=== PATIENT | female | born 1955 | race Caucasian/White ===

== ENCOUNTER 2016-11-17 23:33 | Inpatient (IN) ==
[2016-11-18] MEDS ORDERED: TORADOL IM ONE (01:20)
[2016-11-18] MEDS ORDERED: HYDROCODONE/APAP 7.5-325/15 ML PO ONE (01:34)
--- NOTE | 2016-11-18 02:17 | PROVIDER DOCUMENTATION ---
This chart was entered by Renuka Murphy Scribe, acting as scribe for Inocente Hargrove MD. HPI-General Adult - General Chief Complaint: General Adult Stated Complaint: POST OP COMPLAINT Time Seen by Provider: 11/18/16 00:35 Source: patient Allergies/Adverse Reactions: Patient Allergies Allergy/AdvReac Type Severity Reaction Status Date / Time erythromycin base Allergy RASH Verified 11/18/16 00:05 [Erythromycin Base] ketorolac tromethamine * Allergy ANAPHYLAXIS Verified 11/18/16 00:05 [From Toradol] morphine Allergy HEADACHE Verified 11/18/16 00:05 Penicillins Allergy VOMITING Verified 11/18/16 00:05 Home Medications: Home Medication List Medication Instructions Recorded Confirmed Last Taken Type Alprazolam [Xanax] 1 mg PEG TID 01/15/14 11/18/16 11/17/16 History Hydrocodone/Acetaminophen [Vicodin 7.5 mg PEG TID 01/15/14 11/18/16 11/17/16 History 5-300 mg Tablet] Gabapentin [Neurontin] 1 - 3 tab PEG Q3H PRN 07/09/16 11/18/16 11/17/16 History Promethazine [Phenergan] 25 mg PEG Q6H PRN PRN 11/18/16 11/18/16 11/17/16 History - History of Present Illness -Gen Adult Nature of Presenting Problems: 61 Y/O F presents to ED with General Adult C/o.Pt states that her feeding tube came out about 1hr FILLING [employer]. Pt states that she had two different cancers of the jaw and had full reconstruction. Pt can talk but is not very clear. Pt came into ED o replace feeding tube. Location of Pain/Injury: reports: abdomen Pain Radiation: reports: no radiation Quality of Pain: reports: none Severity: reports: moderate Onset/Duration: reports: just prior to arrival, 1 hour ago Timing: reports: still present Context/Activities at Onset: reports: none Associated Symptoms: reports: denies symptoms Review of Systems - Adult - REVIEW OF SYSTEMS - ADULT Constitutional: reports: no symptoms reported Eyes: reports: no symptoms reported Ears, Nose, Mouth & Throat: reports: no symptoms reported Cardiovascular: reports: no symptoms reported Respiratory: reports: no symptoms reported Gastrointestinal: reports: other (Feeding tube replacement.) Genitourinary: reports: no symptoms reported Musculoskeletal: reports: no symptoms reported Integumentary: reports: no symptoms reported Neurological: reports: no symptoms reported Psychiatric: reports: no symptoms reported Endocrine: reports: no symptoms reported Hematologic/Lymphatic: reports: no symptoms reported Allergic/Immunologic: reports: no symptoms reported All Other Systems: Reviewed and Negative Past History - Adult - PAST MEDICAL HISTORY-ADULT Review of Records: reports: Old Records Reviewed, Nursing Assessment Review, Medications Reviewed, Social history reviewed & non-contributory. Major Childhood Illnesses: reports: denies history Cardiovascular: reports: HTN Respiratory: reports: COPD Gastrointestinal: reports: denies history Obstetrical/Gynecological: reports: denies history Genitourinary: reports: denies history Musculoskeletal: reports: denies history Neurological: reports: CVA Endocrine/Immune: reports: denies history Other Conditions: reports: denies history - PRIOR SURGERIES/PROCEDURES Surgical/Procedure History: reports: BTL, other (back and cervical ca with removal, bone tumors) - IMMUNIZATION STATUS Childhood Immunizations: See Nurse Assessment Flu Vaccine: See Nurse Assessment - FAMILY HISTORY Family History: reviewed, not pertinent - SOCIAL HISTORY Smoking: quit greater than 1 year Living Situation: family Physical Exam-General - PHYSICAL EXAM-ADULT Initial Vital Signs Reviewed: Yes - CONSTITUTIONAL General Appearance: appears well, alert, no apparent distress - EYES Eyes: PERRL/EOMI, pink conjunctivae, fundi clear, no AV nicking - HEAD, EARS, NOSE, MOUTH & THROAT HENMT: TMs normal, pharynx normal, other (jaw reconstruction) - NECK Neck: non-tender, full range of motion, supple, normal inspection - RESPIRATORY Respiratory: chest non-tender, lungs clear, normal breath sounds - CARDIOVASCULAR Cardiovascular: normal peripheral pulses, regular rate, rhythm - GASTROINTESTINAL (ABDOMEN) Abdominal Exam: soft, other (Peg tube) - LYMPHATIC Lymphatic: no adenopathy - MUSCULOSKELETAL Back Exam: normal inspection, no CVA tenderness, no vertebral tenderness Extremity: normal range of motion, non-tender - SKIN Integumentary: normal color, normal turgor, warm/dry - NEUROLOGIC Neurologic: clinical massage therapist II-XII nml as tested - PSYCHIATRIC Psych/Mental Status: normal mood/affect, normal thought content, normal thought process, oriented x 3 Progress - PLAN OF CARE/RESULTS Progress/Plan/Lab Results: Vital Signs - 8 hr 11/17/16 23:38 Temperature 95 F L Pulse Rate 100 H Respiratory Rate 14 Blood Pressure 114/62 O2 Sat by Pulse Oximetry 100 - REASSESSMENT Reassessment #1 Time Reassessed: 02:13 Status: improving (advised that we will admit her for observation until Dr Drew can assess the peg tube for placement or replacement. will start iv for pain control with dilaudid. She says it feels about like her first tube, but xray is not reassuring) - CONSULTS/PCP/HOSPITALIST Notification #1 *Consult/PCP/Hospitalist*: Dr. Drew Time Discussed: 01:58 Reason/Comments: Plan of care and admittance after Seeing XRAY Consult Disposition: other (Will see in Hospital, told to admit pt) #2 Consult: Time Discussed: 02:12 Reason/Comments: Admittance Consult Disposition: Admit Procedures - ADDITIONAL PROCEDURES Additional Procedure: OTHER (Peg tube replacement, 18 Fresh) Site Prep: Hibiclens Departure - Departure Time of Disposition Decision: 02:15 DIAGNOSIS: PEG tube malfunction Disposition: ADMITTED INPATIENT 09 Certified Medical Emergency: Emergent Condition: Stable Referrals and Follow-Ups: Dustin Whitehead MD [Primary Care Provider] - This chart was documented by the indicated scribe, (Renuka Murphy Scrannie) and accurately reflects the services I performed and decisions made by me, Inocente Hargrove MD, as attested by the provider's signature.
[2016-11-18] MEDS ORDERED: DEMEROL IV ONE ×3 (02:32→13:33)
[2016-11-18] MEDS: NS 1,000 ML IV SCH ×2 (02:45→17:19)
[2016-11-18 02:50] LABS: MANUAL DIFF NEEDED? NO
[2016-11-18 02:52] LABS: BASO% 0.4 % (0.0-0.8); EOS# 0.14 X1000 (0.0-0.7); HEMATOCRIT 37.5 % (37.0-47.0); HEMOGLOBIN 11.6 g/dL (12.0-16.0); MCH 27.2 PG (27-31); MCHC 30.9 g/dL (33-37); MONO# 0.51 X1000 (0.11-0.59); MONO% 7.4 % (1.7-9.3); MPV 11.2 FL (7.4-10.4); NEUT% 77.2 % (42.2-75.2); PLT 335 X1000 (130-400); RBC 4.26 XMIL (4.2-5.4)
--- NOTE | 2016-11-18 03:50 | HISTORY AND PHYSICAL ---
Patient of Dr. Whitehead. REASON FOR ADMISSION: Sharp abdominal pain preceding eventual PEG tube displacement. 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 She has had 42 RTX treatments over the course of the last 1 year and is currently undergoing reconstructive surgery of the soft palate and posterior oropharyngeal area at [facility]. In the interim, she has had a PEG tube placed for nourishment. She has had a past medical history of Crohn's disease and chronic pancreatitis. She reports that sometime this afternoon, she developed sudden epigastric pain near the site of her PEG tube insertion. She said the pain was sharp, intermittent, with no specific aggravating or relieving factors, or radiation. She has a longstanding history of chronic nausea and stated that the nausea got worse simultaneously with the sharp abdominal pain. No vomiting. No diarrhea, hematochezia, or melenic stools. No fever or chills. No cardiorespiratory complaints other than her chronic cough which has not worsened. A few hours later, her PEG tube came out from its stoma. She called her surgeon at [facility] and only got a recording. Then called [facility] ER and could not get any further information and decided to come to our ER to be evaluated. Currently, the patient still has some pain which is only mildly relieved from oral Vicodin. REVIEW OF SYSTEMS: Recently had loose stools which have resolved with Imodium. No genitourinary complaints. Has a lot of oral secretions which required suctioning. Otherwise , 12 system review is negative. Positive findings per HPI other than generalized weakness. ALLERGIES: Erythromycin, Toradol, morphine, and penicillin. HOME MEDICATIONS: She is on gabapentin 100 mg 1-3 tablets q.6 p.r.n., Xanax 1 mg t.i.d., [place] 7.5 mg t.i.d., Phenergan 25 mg q.6 p.r.n. FAMILY HISTORY: Not reviewed. SURGICAL HISTORY: She has had , hysterectomy, foot reconstruction with skin grafts, tracheostomy, PEG tube, tubal ligation, bone tumor resection. SOCIAL HISTORY: Former smoker. . No alcohol or illicit drug use. PAST MEDICAL HISTORY: See above, including peripheral arterial disease. LAB WORK: Pending at this time, as are x-ray reports. PHYSICAL EXAMINATION: VITAL SIGNS: Blood pressure 114/60, heart rate 100, temperature is 95 degrees, respirations 14, 98% on room air. GENERAL: She is a chronically ill, thin, and somewhat mildly anorexic, middle- aged, woman who is alert and oriented to person, place, and time with noticeable dysphonia. HEENT: Head is normocephalic, atraumatic. Eyes: ZOE, EOMI. She is anicteric and not pale. ENT exam: The oropharyngeal exam is somewhat limited. Her right soft the uvula is somewhat partially resected. However, there is no erythema, no exudation, no masses noted. No central cyanosis. NECK: Supple. No JVD noted. She has almost completely closed central stoma where her tracheostomy was removed over a week ago. She has another small linear opening on the right side of her neck where a drainage tube was placed. No surrounding erythema. No purulent discharge. No tenderness. These areas are covered by dry gauze which is clean. CHEST: Clear to auscultation. Good air entry in both lung padilla. CARDIOVASCULAR: First and second heart sounds heard. No gallops, murmurs, or rubs. Rhythm is regular. ABDOMEN: Scaphoid. There is a new PEG tube placed in the epigastrium which was put in by the ER physician, Dr. Hargrove. No surrounding erythema. Some mild tenderness around the site itself. No mass or organomegaly. Bowel sounds are hypoactive. Noticeable bruit in the abdomen heard. RECTAL: Examination deferred at this time. EXTREMITIES: Diminished pulses distally in her lower extremity distally, upper extremity distally, but symmetrical. No edema, no clubbing or peripheral cyanosis. NEUROLOGIC: No focal deficits. SKIN: Intact with decreased turgor. MUSCULOSKELETAL: Examination is grossly normal. ASSESSMENT: 1. Displaced percutaneous endoscopic gastrostomy tube. 2. Crohn's disease. 3. Chronic pancreatitis. 4. 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 5. Peripheral arterial disease. 6. Chronic obstructive pulmonary disease, mild. 7. Reflux disease. PLAN: At this time, Dr. Drew was contacted by Dr. Hargrove regarding the tube placement. Dr. Hargrove had tried to put in a new tube but after injecting Gastrografin, he was not sure if it was in the stomach. Dr. Drew will see the patient in the morning. Probably may need to do an EGD to confirm location and also may require further manipulation of the tube in place now. In the interim, we will continue to treat patient symptomatically for nausea, pain, and hydrate her. Labs were ordered. I just ordered her labs and if there are any abnormalities, we will address this prior to seeing Dr. Drew. cc: Randal Galvan MD [facility]
[2016-11-18] MEDS ORDERED: PHENERGAN IV ONE ×2 (04:26→11:45)
[2016-11-18] MEDS ORDERED: SODIUM CHLORIDE 0.9% INJ ONE ×2 (04:26→11:45)
[2016-11-18 04:50] LABS: AMYLASE 35 U/L (20-200); LIPASE 20 U/L (13-60)
[2016-11-18 04:54] LABS: AGAP 13; ALBUMIN 3.8 g/dL (3.5-5.0); ALKALINE PHOSPHATASE 88 U/L (32-104); BUN 21 mg/dL (8-22); CALCIUM 9.8 mg/dL (8.8-10.2); CHLORIDE 96 mmol/L (98-107); COSMO 279; GOT 19 U/L (10-30); GPT 8 U/L (10-36); MAGNESIUM 2.3 mg/dL (1.5-2.7); POTASSIUM 4.3 mmol/L (3.5-5.1); SODIUM 139 mmol/L (136-145); TCO2 30 mmol/L (25-35); TOTAL BILIRUBIN 0.17 mg/dL (0.20-1.00); TOTAL PROTEIN 7.2 g/dL (6.3-8.3)
--- NOTE | 2016-11-18 07:34 | Diag Imaging Result Document ---
PROCEDURE NAME: FISH ABDOMEN - 11/18/2016 ABDOMEN: COMPARISON: 07/09/2016. FINDINGS: Contrast was infused into the gastrostomy tube. This outlines a normal-appearing stomach and proximal duodenum. IMPRESSION: Good gastrostomy tube placement.
[2016-11-18] MEDS ORDERED: SODIUM CHLORIDE 0.9% INJ PRN (08:23)
[2016-11-18] MEDS ORDERED: DEMEROL IV PRN ×2 (08:23→11:45)
[2016-11-18] MEDS: PHENERGAN IV PRN ×2 (08:52→17:20)
[2016-11-18] MEDS ORDERED: ZOFRAN IV PRN (11:45)
[2016-11-18] MEDS ORDERED: XANAX PEG SCH (11:45)
[2016-11-18] MEDS: ATIVAN IV PRN ×2 (13:44→21:26)
--- NOTE | 2016-11-18 14:35 | Diag Imaging Result Document ---
PROCEDURE NAME: FISH ABDOMEN - 11/18/2016 ABDOMEN AT 1420 HOURS: COMPARISON: 0115 hours. FINDINGS: Apparently, the patient's gastrostomy tube was repositioned. Water-soluble contrast was infused. This does not appear to be within the stomach. This appears to be freely flowing within the peritoneal cavity. IMPRESSION: Malpositioned gastrostomy tube. Findings were called to the patient's unit immediately.
--- NOTE | 2016-11-18 16:40 | PROGRESS NOTE ---
DATE: 11/18/2016 SUBJECTIVE: Ms. José was admitted early this morning. She had sharp abdominal pain preceding PEG tube displacement. Ms. 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 She has had 42 radiation treatments over the course of the last year. Currently undergoing reconstructive surgery of the soft palate and posterior oropharyngeal area at [facility]. In the interim she has had a PEG tube placed for her nourishment. She has a past medical history of Crohn's disease and chronic pancreatitis. She reports that some time this afternoon she developed sudden epigastric pain at the site of her PEG tube insertion. Said the pain was sharp, intermittent with no specific aggravating or relieving factors or radiation. She had longstanding history of chronic nausea and stated that the nausea got worse simultaneously with the sharp abdominal pain. No vomiting. No diarrhea. No hematochezia. No melanotic stools. No fever or chills. No cardiorespiratory complaints other than the chronic cough which is worsened. A few hours later, PEG tube came out just spontaneously. She called surgeon at [facility] and only got a recording. Called [facility] ER and they could not get any further information, and decided to come to the ER here to get evaluated. Apparently NG tube was tried to be replaced, but she continued to have pain. The pain seemed to get worse. Did radiographic studies. Abdominal x-ray showed good gastrostomy tube placement. That was at 1:00 a.m. and follow up at 1:00 p.m., malpositioned gastrostomy tube. So plan is for Dr. Burger to replace the tube. OBJECTIVE: Vital signs: Today and will and while in the emergency room, temperature 98 degrees, pulse 89, respirations 20, blood pressure 107/65. HEENT: Pupils are equal and round. CVP less than 6 cm. Lungs: Clear in all lung padilla. Cardiovascular: Regular rhythm and rate without murmur or S3. She was tender around the replacement tube with a bulb and very anxious. We gave her some Ativan. ASSESSMENT AND PLAN: 1. Pain around her percutaneous endoscopic gastrostomy feeding tube. Plan is for her to undergo esophagogastroduodenoscopy and replacement of the tube. 2. Protein calorie malnutrition. Needs to continue percutaneous endoscopic gastrostomy tube feeding. 3. Crohn's disease. 4. Chronic pancreatitis. 5. Squamous cell oral cancer, status post surgery with 42 radiation treatments and now undergoing reconstructive surgery. 6. Review of her laboratory, hematocrit 37, electrolytes unremarkable. Orders, I do not see any change at this point this. cc: Obi Lewis MD
[2016-11-18] MEDS ORDERED: DIPRIVAN 1% ONE (16:55)
[2016-11-18] MEDS ORDERED: VERSED ONE (16:55)
[2016-11-18] MEDS ORDERED: XYLOCAINE-MPF 2% ONE (17:07)
[2016-11-18] MEDS: NORCO-7.5 PEG SCH ×3 (17:07→21:24)
[2016-11-18] MEDS ORDERED: LEVAQUIN 500 MG/D5W 500 MG/100 ML IVPB IV ONE (18:00)
[2016-11-18] MEDS ORDERED: PROTONIX IV SCH (19:00)
[2016-11-18] MEDS ORDERED: SODIUM CHLORIDE 0.9% INJ SCH (19:00)
--- NOTE | 2016-11-18 20:25 | OPERATIVE NOTE ---
PROCEDURE DATE: 11/18/2016 PROCEDURE: Esophagogastroduodenoscopy and G-tube replacement. PREOPERATIVE DIAGNOSE: G-tube displacement. POSTOPERATIVE DIAGNOSE: G-tube displacement, replaced. DESCRIPTION OF PROCEDURE: After informed consent and adequate intravenous sedation, the scope was introduced to the esophagus, stomach. The G-tube is not in the stomach. The G site was identified. The PEG site was then dilated with the sounds up to 25. A 25-[place] gastrostomy tube replacement was done with internal balloon inflated and the melissa is at 4. Patient tolerated the procedure well without any immediate complications. cc: Gael Burger MD
[2016-11-19] MEDS: NS 1,000 ML IV SCH (02:38)
[2016-11-19] MEDS: ATIVAN IV PRN (02:38)
[2016-11-19 07:48] VITALS: BP 132/68
[2016-11-19] MEDS: NORCO-7.5 PEG SCH (09:55)
[2016-11-19] MEDS ORDERED: LEVAQUIN 500 MG/D5W 500 MG/100 ML IVPB IV ONE (11:00)
--- NOTE | 2016-11-19 12:56 | DISCHARGE SUMMARY ---
ADMISSION DATE: 11/18/2016 DISCHARGE DATE: 11/19/2016 HISTORY AND HOSPITAL COURSE: The patient was admitted on 11/18/2016, yesterday. Had trouble with her PEG tube. The PEG tube was replaced per Dr. Burger. Feels good. Still having loose stools but her states she has had that for a while. No sign of pain. No nausea at the present time. Dr. Burger dilated up to 25, a 25-Polish gastrostomy tube replacement done, balloon inflated. Follow up with her oncologist. Continue here her feeding when she goes home and plan to let her go home. DISCHARGE MEDICATIONS: She is on [place] 7.5 per PEG tube. She has Phenergan that she uses 12.5 mg per PEG tube p.r.n.; she wanted a prescription. I think her other medications at home are Xanax 1 mg PEG tube t.i.d., Neurontin 1-3 tablets per PEG tube q.3 hours p.r.n. She has hydrocodone 7.5 per PEG tube t.i.d. and Phenergan 25 mg per PEG tube q.6 hours p.r.n. cc: Obi Lewis MD
== END 2016-11-19 11:19 | disposition home health service (06) ==
LOC: EDIPHOLD 23:33 → ED 23:33 → OBSVTOIN 11-18 04:50 → SUATTDRO 11-18 04:50 → 3N 11-18 13:23
PROVIDERS: ATTEND Emergency Medicine

== ENCOUNTER 2017-01-20 04:09 | Inpatient (IN) ==
[2017-01-20] MEDS ORDERED: DUONEB (A & A) INH ONE (04:32)
[2017-01-20 04:41] LABS: ALLEN TEST YES; BE 8.1 mmoll (-3.0-3.0); BLOOD TYPE ARTERIAL; DRAW SITE R RADIAL; O2(CT) 11.4 mL/dL (15.0-23.0); SAMPLE BLOOD; SAO2 89.9 % (95.0-100.0); THB 9.3 g/dL (11.5-17.4)
--- NOTE | 2017-01-20 04:42 | PROVIDER DOCUMENTATION ---
HPI-General Adult - General Chief Complaint: Shortness of Breath Stated Complaint: GENERAL Time Seen by Provider: 01/20/17 04:50 Source: patient, family Allergies/Adverse Reactions: Patient Allergies Allergy/AdvReac Type Severity Reaction Status Date / Time Iodinated Contrast Media - Allergy Severe Unknown Verified 01/20/17 07:03 Oral and [IV Dye] erythromycin base Allergy RASH Verified 11/18/16 00:05 [Erythromycin Base] ketorolac tromethamine * Allergy ANAPHYLAXIS Verified 11/18/16 00:05 [From Toradol] morphine Allergy HEADACHE Verified 11/18/16 00:05 Penicillins Allergy VOMITING Verified 11/18/16 00:05 Home Medications: Home Medication List Medication Instructions Recorded Confirmed Last Taken Type Alprazolam [Xanax] 1 mg PEG TID 01/15/14 01/20/17 01/19/17 21:00 History Hydrocodone/Acetaminophen [Vicodin 7.5 mg PEG TID 01/15/14 01/20/17 01/19/17 21: 00 History 5-300 mg Tablet] Gabapentin [Neurontin] 300 mg PEG Q3H 07/09/16 01/20/17 01/19/17 21:00 History Promethazine [Phenergan] 25 mg PEG Q6H PRN PRN #60 tablet 11/19/16 01/20/17 Unknown Rx Omeprazole [Omeprazole] 40 mg PEG DAILY 01/20/17 01/20/17 01/19/17 09:00 History - History of Present Illness -Gen Adult Nature of Presenting Problems: Pt was noted to have the sudden onset of sonorous breathing tonight. She has been treated for a right throat/neck cancer with surgery and radiation and now has a new throat squamous cell cancer that was recently resected in [place]. She has a follow-up appoinment in 1 week there. She reports a history of copd and wonders if she needs home oxygen. She can swallow liquids, but has a peg tube for feeding. She has experienced aspiration pneumonia in the past. Her Dr at the [facility] is Dr Mckinnon, ENT Review of Systems - Adult - REVIEW OF SYSTEMS - ADULT Constitutional: denies: chills, fever Eyes: denies: discharge, blurred vision Ears, Nose, Mouth & Throat: reports: hoarseness, other (she sometimes needs to write because she can't speak clearly and has a peg tube) Past History - Adult - PAST MEDICAL HISTORY-ADULT Review of Records: reports: Old Records Reviewed, Nursing Assessment Review, Medications Reviewed Major Childhood Illnesses: reports: denies history Cardiovascular: reports: HTN Respiratory: reports: COPD Gastrointestinal: reports: denies history Obstetrical/Gynecological: reports: denies history Genitourinary: reports: denies history Musculoskeletal: reports: denies history Neurological: reports: CVA Endocrine/Immune: reports: denies history Other Conditions: reports: denies history - PRIOR SURGERIES/PROCEDURES Surgical/Procedure History: reports: BTL, other (back surgery and 2 different throat and neck surgeries with removal, bone tumors of the lower right leg were also removed) - IMMUNIZATION STATUS Childhood Immunizations: See Nurse Assessment Flu Vaccine: See Nurse Assessment - FAMILY HISTORY Family History: reviewed, not pertinent Physical Exam-General - PHYSICAL EXAM-ADULT Initial Vital Signs Reviewed: Yes - CONSTITUTIONAL General Appearance: appears well, alert, no apparent distress - EYES Eyes: PERRL/EOMI, pink conjunctivae - HEAD, EARS, NOSE, MOUTH & THROAT HENMT: normocephalic/atraumatic, moist mucous membranes, other (difficult to understand her speech, able to swallow liquid, but needs a peg tube) - NECK Neck: non-tender, full range of motion, supple - RESPIRATORY Respiratory: chest non-tender, lungs clear, normal breath sounds, no pleuratic chest pain, no respiratory distress, no accessory muscle use - GASTROINTESTINAL (ABDOMEN) Abdominal Exam: normal bowel sounds, non tender, soft, no organomegaly, no pulsatile mass - LYMPHATIC Lymphatic: no adenopathy - MUSCULOSKELETAL Back Exam: normal inspection, no CVA tenderness, no vertebral tenderness, CVA tenderness Extremity: normal range of motion, non-tender, normal gait, no pedal edema - SKIN Integumentary: normal color, normal turgor, warm/dry - NEUROLOGIC Neurologic: animal surgeon II-XII nml as tested, grossly normal, no motor/sensory deficits Progress - PLAN OF CARE/RESULTS Progress/Plan/Lab Results: Vital Signs - 8 hr 01/20/17 04:10 Temperature 99.9 F H Pulse Rate 111 H Respiratory Rate 17 Blood Pressure 107/79 O2 Sat by Pulse Oximetry 92 L Orders Category Date Time Status cxr [CHEST-2 VIEWS] [RAD] Stat Exams 01/20/17 04:05 Ordered ABG [RESP] Routine Lab 01/20/17 04:22 Ordered CBC WITH ELECTRONIC DIFF [HEME] Stat Lab 01/20/17 04:00 Results CMP [COMPREHENSIVE METABOLIC PANEL] [CHEM] Stat Lab 01/20/17 04:00 Received Ddimer [D-DIMER] [CHEM] Stat Lab 01/20/17 04:00 Received pro-bnp [PRO B-NATRIURETIC PEPTIDE] Stat Lab 01/20/17 04:00 Received Albuterol 2.5MG/Ipratrop 0.5MG [Duoneb (A & A)] Med 01/20/17 04:32 Discontinued 3 ml INH NOW ONE Aerosol Treatments Routine Oth 01/20/17 04:32 Active Aerosol Treatments Stat Oth 01/20/17 04:32 Active EKG [EKG] Stat Ther 01/20/17 03:56 Ordered Result Diagrams: 01/20/17 04:00 01/20/17 04:00 - REASSESSMENT Reassessment #1 Time Reassessed: 06:55 Status: improving (Took over pt's care at 6AM and pt was examined. Pt had radical throat cancer surgery 1-2 months ago at [facility]. Pt cannot talk and her anterior neck is very swelling even though the surgical wound is healing well w/ o signs for infection by inspection. CT neck with contrast ordered. Pt is stable and her SO2=96% on RA.) - XRAY 1 XRAY Study: Chest Impression: Abnormal (Pulmonary edema vs. Pneumonia) - CT/MRI 1 CT Study: Neck, Thorax Impression: Abnormal (Details see Radiology reports) - CONSULTS/PCP/HOSPITALIST Notification #1 *Consult/PCP/Hospitalist*: [facility]/DR. PANIAGUA Consult Disposition: Admit - CHANGE OF SHIFT REPORT (ED Provider) Report Given and Care Transferred to:: Dr Hilliard Time of Transfer: 05:58 Departure - Departure Date of Disposition Decision: 01/20/17 Time of Disposition Decision: 07:50 DIAGNOSIS: Respiratory distress, PNA (pneumonia) Disposition: ADMITTED INPATIENT 09 Certified Medical Emergency: Emergent Condition: Stable - Critical Care Note This patient required my direct & personal management of CC.: No
[2017-01-20 04:43] LABS: PCO2(98.6) 55 mmHg (35-45)
[2017-01-20 04:44] LABS: MODALITY ROOM AIR; PO2(98.6) 49 mmHg (60-100)
[2017-01-20 04:56] LABS: BASO% 0.1 % (0.0-0.8); HEMATOCRIT 32.1 % (37.0-47.0); LYMPH# 0.17 X1000 (1.2-3.4); LYMPH% 1.6 % (20.5-51.1); MANUAL DIFF NEEDED? NO; MCH 26.5 PG (27-31); MCHC 31.2 g/dL (33-37); MCV 85.1 FL (81-99); MONO# 0.55 X1000 (0.11-0.59); MONO% 5.1 % (1.7-9.3); MPV 10.3 FL (7.4-10.4); NEUT% 93.2 % (42.2-75.2); PLT 261 X1000 (130-400); RBC 3.77 XMIL (4.2-5.4)
[2017-01-20 05:02] LABS: AGAP 12; ALBUMIN 3.3 g/dL (3.5-5.0); ALKALINE PHOSPHATASE 91 U/L (32-104); BUN 18 mg/dL (8-22); CALCIUM 8.5 mg/dL (8.8-10.2); CHLORIDE 91 mmol/L (98-107); COSMO 274; GOT 38 U/L (10-30); GPT 17 U/L (10-36); POTASSIUM 4.1 mmol/L (3.5-5.1); SODIUM 134 mmol/L (136-145); TCO2 31 mmol/L (25-35); TOTAL BILIRUBIN 0.15 mg/dL (0.20-1.00); TOTAL PROTEIN 6.8 g/dL (6.3-8.3)
--- NOTE | 2017-01-20 05:17 | EKG Report ---
Test Performed on : 01/20/2017 03:59:14 AM Test Reason : cp Blood Pressure : / mmHG Vent. Rate : 102 BPM Atrial Rate : 102 BPM P-R Int : 140 ms QRS Dur : 084 ms QT Int : 364 ms P-R-T Axes : 061 033 053 degrees QTc Int : 474 ms Sinus tachycardia. Otherwise normal ECG When compared with ECG of 09-JUL-2016 16:36, No significant change was found Unconfirmed Result
[2017-01-20] MEDS ORDERED: BENADRYL IV ONE (05:39)
[2017-01-20] MEDS ORDERED: SOLU-CORTEF IV ONE (05:39)
[2017-01-20] MEDS ORDERED: LEVAQUIN 500 MG/D5W 500 MG/100 ML IVPB IV ONE (06:05)
[2017-01-20] MEDS ORDERED: CLINDAMYCIN 600 MG/NS 600 MG/50 ML IVPB IV ONE (06:05)
--- NOTE | 2017-01-20 07:16 | Diag Imaging Result Doc PS360 ---
EXAM: ANGIOGRAM/PULMONARY ARTERIES HISTORY: hypoxia/ elevated d-dimer TECHNIQUE: CT of the chest with intravenous contrast with dose reduction (clarity.) COMMENT: There are no filling defects in the pulmonary arteries. There is atherosclerotic calcification in the aorta. There is no evidence of aneurysm or dissection. There is alveolar opacity throughout both lungs particularly in the inferior portions of the left lower lobe. There are some emphysematous changes. There is some fibrosis in the apices. Compared to 07/09/2016 the majority of the alveolar opacity was not present previously. There is no evidence of significant adenopathy and no abnormal fluid collections are present. IMPRESSION: Pulmonary edema and/or pneumonia. No evidence of pulmonary emboli. Electronically signed by Magdaleno Mott 01/20/2017 7:13 AM
--- NOTE | 2017-01-20 07:25 | Diag Imaging Result Doc PS360 ---
EXAM: NECK W/CONTRAST HISTORY: Post op/slurry speech/neck swelling/apsiration TECHNIQUE: CT of the neck with intravenous contrast COMMENT: The current study is compared with 03/07/2016. Since the previous study there has apparently been surgery to both sides of the neck with multiple surgical clips. The right submandibular gland is absent or atrophic. The parotid glands are atrophic in appearance. The nasopharynx is unremarkable. There is increased soft tissue density in the right parapharyngeal space which obliterates the fat planes between the carotid and the mandibular ramus. There is also some subcutaneous soft tissue thickening on the left side in the tonsillar pillar. The patient is edentulous with similar periodontal changes in the mandible to the previous study. There may have been a resection of parts of the tongue since the previous study. The epiglottis is similar in appearance to the previous exam. There is generally less fat in the neck on the previous study. No discrete nodes are present. Some apical pleural thickening is noted on the left which was not apparent on the previous study. IMPRESSION: Evidence of previous bilateral neck dissection. By history, the patient has also had radiation to the neck which would explain some of the soft tissue changes. The possibility of residual mucosal neoplastic disease cannot be excluded. Comparison with more recent post operative studies would be helpful in evaluating any interval change. Electronically signed by Magdaleno Mott 01/20/2017 7:22 AM
--- NOTE | 2017-01-20 08:58 | Diag Imaging Result Doc PS360 ---
EXAM: CHEST-2 VIEWS INDICATION: sob/ ? aspiration TECHNIQUE: 2 views COMPARISON: 07/09/2016 FINDINGS: There are infiltrates at both lung bases suggesting pneumonia. At least no large pleural fluid collection is appreciated. There is no evidence of pneumothorax. Cardiac silhouette is unremarkable. IMPRESSION: Bibasilar consolidations as described. Electronically signed by Mirza Alfred 01/20/2017 8:55 AM
--- NOTE | 2017-01-20 09:34 | HISTORY AND PHYSICAL ---
PRIMARY CARE PHYSICIAN: Dr. Dustin Whitehead. EARS, NOSE, THROAT PHYSICIAN: Dr. Wayne Mckinnon at the [facility] at [facility]. CHIEF COMPLAINT: Altered mental status and dyspnea. HISTORY OF PRESENT ILLNESS: Mrs. 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 She is status post 42 radiation treatments and has undergone radical head and neck surgery at [facility] and is under the care of Dr. Wayne Mckinnon. She most recently had reconstructive surgery of her neck in September of this year at which time she had a PEG tube placed for nutrition. Also, she has been fairly dysphasic since that time, having a difficult time communicating verbally. She comes in today for altered mental status. Her fiancee woke up around 2 o' clock, and the patient was erratically breathing and difficult to arouse. At that time, 911 was called, and the patient was noted to be tachycardic in the ambulance as well as hypoxic. When she got to the ER, she was stabilized with oxygen and breathing treatments and a CTA of the chest was done which revealed pulmonary edema and/or pneumonia without evidence of pulmonary emboli. Her laboratory data shows that she is mildly anemic, and ABG reveals hypoxic and hypercarbic respiratory failure. As such, she is going to be admitted for iuedk-ah-evaduwy respiratory failure, acute-on- chronic aspiration, and aspiration pneumonia. PAST MEDICAL HISTORY: 1. Head and neck cancer, please see HPI. 2. Severe calorie protein malnutrition. 3. Chronic aspiration. 4. Chronic respiratory failure. 5. Crohn's disease. 6. Chronic pancreatitis. 7. Chronic pain. 8. Anxiety. PAST SURGICAL HISTORY: section, hysterectomy, foot surgery, trach, PEG , tubal ligation, radical head and neck surgery, bone tumor resection. SOCIAL HISTORY: Patient quit smoking after the diagnosis of head and neck cancer. She does not use alcohol, tobacco, or illicit drugs currently. Phil is at the bedside. REVIEW OF SYSTEMS: Difficult to obtain secondary to dysphagia, but she has had subjective low- grade fevers. No visual disturbances, she has had some neck pain and throat swelling, as well as occasional dysphagia and aspiration with vomiting. She reports worsening cough which is dry in nature. No abdominal pain to speak of. She has loose stools constantly but no overt diarrhea. No chest pain, but she has had some shortness of breath. No lower extremity edema. No orthopnea. Overall, her weight has stayed the same but is quite low. ALLERGIES: IV dye. Oral contrast, erythromycin base. Toradol, morphine and penicillin. HOME MEDICATIONS: 1. Phenergan 25 mg via PEG tube every 6 hours. 2. Omeprazole 40 mg via PEG tube daily. 3. Vicodin 7.5 mg via PEG tube b.i.d. 4. Neurontin 300 mg via PEG tube q. 3 hours. 5. Xanax 1 mg per PEG t.i.d. FAMILY HISTORY: Noncontributory. PHYSICAL EXAMINATION: VITAL SIGNS: Blood pressure is 103/57, heart rate is 101, respiratory rate is 18, O2 saturation 96% on 2 L. GENERAL: This is a frail, bordering on cachectic and disheveled-appearing 61- year-old female, lying in the hospital bed in no acute distress. NEUROLOGIC: The patient follows commands with very garbled speech but she is oriented. HEENT: Head is atraumatic and normocephalic. Her pupils are equal, round, and reactive to light. Oral mucosa is a bit dry. Her trachea is midline. Incisional scars are clean, dry, and intact. There is no JVD or carotid bruits. CHEST: Bibasilar rhonchi and crackles. CV: Regular rate and rhythm. S1-S2 is noted. GASTROINTESTINAL: PEG tube site is clean, dry, and intact. Belly is soft and nondistended. EXTREMITIES: Without edema, clubbing, or cyanosis. Diminished pulses bilaterally. DIAGNOSTIC DATA: WBC 10.71, hemoglobin 10, hematocrit 32.1, platelet count 261. D-dimer 2.33. ABG on room air: pH 7.4, CO2 of 55, O2 of 49, bicarb 31, oxyhemoglobin 86.8. ABG O2 saturation 89.9%. Sodium 134, potassium 4.1, chloride 91, CO2 of 31, anion gap 12. BUN 18 , creatinine 0.6, glucose 164. Calcium 8.5, bilirubin 0.15. AST 38, ALT 17, alkaline phosphatase 91. ProBNP 723. Albumin 3.3. CTA of the chest shows pulmonary edema and/or pneumonia without evidence of PE. Neck CT with contrast shows evidence of previous bilateral neck dissection. By history, the patient has had radiation to the neck which would explain some of the soft tissue changes. The possibility of residual mucosal neoplastic disease cannot be excluded. Comparison with more recent postoperative studies would be helpful in evaluating any interval change. ASSESSMENT AND PLAN: 1. Geiln-me-wudcrhw hypercarbic and hypoxic respiratory failure: Likely secondary to chronic aspiration. We will continue oxygen, antibiotics, breathing treatments, and aggressive pulmonary toilet. We will check a chest x-ray in the morning. 2. Aspiration pneumonia. We will obtain blood cultures and sputum cultures and start appropriate antibiotics ensuring anaerobic coverage. 3. Chronic aspiration: We are going to consult Nutrition and Speech Therapy although the patient is receiving PEG feedings. We will try to get the best recommendations we can for nutrition and oral feedings. 4. Normocytic anemia. We are going to check a full set of iron studies and thyroid function. 5. Severe protein calorie nutrition: We will continue PEG tube feedings and consult nutrition. 6. Chronic pain and anxiety: We will continue her home medications. 7. History of neck cancer: Overall appears to be stable; however, the CT of the neck did show there still might be residual mucosal neoplastic disease. We will defer this to Dr. Mckinnon, her ENT surgeon at [facility]. 8. Deep venous thrombosis and gastrointestinal prophylaxis will be provided with Lovenox and IV Protonix. Further recommendations to follow. Dictated by JERO Bernard for Flaquito Gupta MD cc: JERO Bernard MD Moses Awoniyi, MD Dr. KIRK [facility]
[2017-01-20] MEDS ORDERED: DUONEB (A & A) INH PRN (09:39)
[2017-01-20 10:32] LABS: IRON SATURATION 5 %; TIBC 190 ug/dL; TOTAL IRON 10 ug/dL (49-151); UNBOUND IRON 180 ug/dL (112-346)
[2017-01-20 10:33] LABS: PREALBUMIN 11.2 mg/dL (20-40)
[2017-01-20 10:43] LABS: FREE T4 0.97 ng/dL (0.93-1.70)
[2017-01-20] MEDS: DUONEB (A & A) INH SCH ×3 (11:08→22:59)
[2017-01-20] MEDS: LOVENOX SUBQ SCH (11:14)
[2017-01-20] MEDS: ZYVOX 600 MG/D5W 600 MG/300 ML IVPB IV SCH (11:15)
[2017-01-20] MEDS: NS 1,000 ML IV SCH (11:15)
[2017-01-20] MEDS: HYDROCODONE/APAP 7.5-325/15 ML PEG SCH ×3 (12:05→17:19)
[2017-01-20] MEDS: XANAX PEG SCH ×3 (12:11→17:19)
[2017-01-20] MEDS: NEURONTIN PEG SCH ×4 (12:28→22:06)
[2017-01-20] MEDS: MERREM 1 GM in NS 50 ML IV SCH ×2 (14:01→22:47)
[2017-01-21] MEDS: PHENERGAN PEG PRN ×2 (00:28→06:16)
[2017-01-21] MEDS: NEURONTIN PEG SCH ×7 (01:07→23:16)
[2017-01-21] MEDS: ZYVOX 600 MG/D5W 600 MG/300 ML IVPB IV SCH ×2 (01:07→17:17)
[2017-01-21] MEDS: DUONEB (A & A) INH SCH ×4 (03:02→22:24)
[2017-01-21 05:57] LABS: HEMATOCRIT 27.3 % (37.0-47.0); HEMOGLOBIN 8.5 g/dL (12.0-16.0); MCH 26.7 PG (27-31); MCHC 31.1 g/dL (33-37); MCV 85.8 FL (81-99); MPV 10.3 FL (7.4-10.4); RBC 3.18 XMIL (4.2-5.4)
[2017-01-21] MEDS: NS 1,000 ML IV SCH ×2 (06:03→20:46)
[2017-01-21 06:13] LABS: AGAP 8; BUN 14 mg/dL (8-22); CALCIUM 8.8 mg/dL (8.8-10.2); CHLORIDE 100 mmol/L (98-107); COSMO 280; POTASSIUM 3.5 mmol/L (3.5-5.1); SODIUM 140 mmol/L (136-145); TCO2 32 mmol/L (25-35)
[2017-01-21] MEDS: MERREM 1 GM in NS 50 ML IV SCH ×3 (06:16→20:47)
[2017-01-21] MEDS: PRILOSEC ORAL SUSPENSION MISC SCH (07:01)
[2017-01-21 08:28] LABS: INR 1.06; PROTIME 11.2 Seconds (9.2-11.7)
--- NOTE | 2017-01-21 09:08 | Diag Imaging Result Doc PS360 ---
EXAM: CHEST-2 VIEWS HISTORY: hypoxia TECHNIQUE: COMPARISON: 01/20/2017 FINDINGS: There is persistence of the left lung infiltrates inferiorly. Heart is not enlarged. Mild increased AP diameter to the chest. Trace left pleural fluid. Markings in the lower right lung are less pronounced than on the prior study. The lungs are better aerated on the current exam. IMPRESSION: Mild interval improvement. Electronically signed by eDnver Cannon 01/21/2017 9:06 AM
[2017-01-21] MEDS: NEOSPORIN OINTMENT TUBE TOP SCH ×2 (09:09→20:48)
[2017-01-21] MEDS: XANAX PEG SCH ×4 (09:09→23:16)
[2017-01-21] MEDS: HYDROCODONE/APAP 7.5-325/15 ML PEG SCH ×3 (09:09→20:46)
[2017-01-21] MEDS: LOVENOX SUBQ SCH (09:24)
--- NOTE | 2017-01-21 10:51 | Diag Imaging Result Doc PS360 ---
EXAM: BA SWALLOW W/VIDEO SPEECH THER HISTORY: ASPIRATION PRECAUTIONS TECHNIQUE: Modified barium swallow total dose is 8 mg. Fluoroscopy time is 60 seconds. COMPARISON: None. FINDINGS: Thin and thick barium were swallowed. Patient had difficulty swallowing thick barium. Aspiration occurred with each swallow with thin barium. The patient did not have a strong cough reflex. A surgical clips in the neck. IMPRESSION: Aspiration with only a small cough reflex. Electronically signed by Denver Cannon 01/21/2017 10:49 AM
[2017-01-21] MEDS: IMODIUM PO PRN ×2 (13:11→23:17)
--- NOTE | 2017-01-21 14:50 | PROGRESS NOTE ---
DATE: 01/21/2017 SUBJECTIVE: This patient looks much better today. She is not complaining of shortness of breath. She had a modified barium swallow today that showed aspiration with only a small cough reflex. So I talked to the patient in detail, and I told her that for now she cannot eat or drink anything because there is a high risk of aspiration. She seems to understand this, but I am not quite sure that she is going to follow my recommendations. OBJECTIVE: Vital Signs: Temperature 97.9 degrees, pulse 81, respiratory rate 18, blood pressure 136/54, oxygen saturation 98% on room air. HEENT: Head normocephalic. No trauma. PERRLA. Neck: Trachea is midline. Incisional scars are clean, dry and intact. No JVD or carotid bruits. Chest: Bilateral scattered rhonchi. Cardiovascular: Regular rhythm and rate. No murmurs. Abdomen: Soft, nontender, nondistended. No hepatosplenomegaly. Patient has a PEG tube that is clean, dry and intact. Extremities: No edema. No clubbing. No cyanosis. Neurological: The patient is alert and oriented x3. She follows commands. She has a problem talking because of her history of throat cancer. LABORATORY: WBC 7.9, hemoglobin 8.5, hematocrit 27.3, platelets 231,000. Sodium 140, potassium 3.5, chloride 100, bicarbonate 32, BUN 14, creatinine 0.4, glucose 106, calcium 8.8, phosphorus 2.1, magnesium 2. ASSESSMENT AND PLAN: 1. Acute on chronic hypercapnic and hypoxemic respiratory failure. This is much better. At this moment she is not complaining of any shortness of breath or respiratory distress. We will continue with breathing treatment and aggressive pulmonary toilet, probably this patient can be discharged tomorrow. 2. Aspiration pneumonia. With the modified barium swallow that showed aspiration with minimal cough reflex, I explained that to the patient in detail and I told her that she cannot eat or drink anything because of the high risk off aspiration. 3. Normocytic anemia. Continue with the same management. 4. Severe protein calorie malnutrition. Continue PEG tube feeding. 5. Chronic pain and anxiety. Continue with home medication. 6. History of neck cancer. We will defer this to Dr. Mckinnon, her ENT and surgeon at [facility] and her cancer doctor. 7. Deep vein thrombosis prophylaxis and gastrointestinal prophylaxis provided by Lovenox and Protonix. cc: Flaquito Gupta MD
[2017-01-22] MEDS: NEURONTIN PEG SCH ×5 (02:27→14:00)
[2017-01-22] MEDS: PHENERGAN PEG PRN (02:27)
[2017-01-22] MEDS: ZYVOX 600 MG/D5W 600 MG/300 ML IVPB IV SCH ×2 (02:27→14:03)
[2017-01-22] MEDS: DUONEB (A & A) INH SCH ×2 (03:40→10:25)
[2017-01-22] MEDS: NS 1,000 ML IV SCH (04:24)
[2017-01-22 06:17] LABS: HEMATOCRIT 27.5 % (37.0-47.0); HEMOGLOBIN 8.4 g/dL (12.0-16.0); MCH 26.6 PG (27-31); MCHC 30.5 g/dL (33-37); RBC 3.16 XMIL (4.2-5.4)
[2017-01-22 06:34] LABS: AGAP 11; BUN 10 mg/dL (8-22); CALCIUM 8.4 mg/dL (8.8-10.2); CHLORIDE 104 mmol/L (98-107); COSMO 289; POTASSIUM 3.7 mmol/L (3.5-5.1); SODIUM 145 mmol/L (136-145); TCO2 30 mmol/L (25-35)
[2017-01-22] MEDS: IMODIUM PO PRN (06:35)
[2017-01-22] MEDS: PRILOSEC ORAL SUSPENSION MISC SCH (06:35)
[2017-01-22] MEDS: MERREM 1 GM in NS 50 ML IV SCH ×2 (06:36→14:03)
[2017-01-22] MEDS: NEOSPORIN OINTMENT TUBE TOP SCH (08:41)
[2017-01-22] MEDS: LOVENOX SUBQ SCH (08:41)
[2017-01-22] MEDS: HYDROCODONE/APAP 7.5-325/15 ML PEG SCH (08:41)
[2017-01-22] MEDS: XANAX PEG SCH (08:41)
[2017-01-22 12:25] VITALS: BP 138/68
--- NOTE | 2017-01-22 15:36 | DISCHARGE SUMMARY ---
ADMISSION DATE: 01/20/2017 DISCHARGE DATE: 01/22/2017 CONSULTATIONS: None. PERTINENT PROCEDURES: 1. Pulmonary arteriogram showed pulmonary edema and/or pneumonia. No evidence of PE. 2. Neck CT showed evidence of previous bilateral neck dissection by history. Patient also had radiation to the neck which would explain some of the soft tissue changes. The possibility of residual mucosal neoplastic disease cannot be excluded. 3. Barium swallow showed aspiration with only a small cough reflex. DISCHARGE DIAGNOSES: 1. Acute on chronic hypercapnic and hypoxemic respiratory failure. Improved. 2. Aspiration pneumonia status post modified barium that showed aspiration with minimal cough reflex. This was explained in detail to the patient that she cannot eat or drink because of her risk for aspiration. We will continue with PEG tube feedings. She will be NPO. 3. Normocytic anemia. Continue with same management. 4. Severe protein calorie malnutrition. Continue PEG tube feeding. 5. Chronic pain and anxiety. Continue home medications. 6. Neck cancer history. She follows with Dr. Mckinnon, her ENT surgeon at [facility]. HOSPITAL COURSE: Ms. José is a 61-year-old female who has a past medical history of head and neck cancer, severe calorie protein malnutrition, chronic aspiration, chronic respiratory failure, Crohn disease, chronic pancreatitis, chronic pain and anxiety. 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 She is status post 42 radiation treatments and has undergone a radical head and neck surgery at [facility] under the care of Dr. Wayne Mckinnon. She recently had reconstruction surgery of her neck in September of this year at which time she had a PEG tube placed for nutrition. She has been fairly dysphasic since that time and having difficulty communicating verbally. She came to the ED for altered mental status. Her fiance woke up around 2 and the patient was a erratically breathing and difficult to arouse. 911 was called. The patient was noted to be tachycardic in the ambulance as well as hypoxic. In the ED, she was stabilized with O2 and breathing treatments. CTA revealed pulmonary edema and/or pneumonia without evidence of pulmonary emboli. Her laboratory data showed she was mildly anemic. ABG revealed hypoxic and hypercarbic respiratory failure. She was admitted for acute on chronic respiratory failure, acute on chronic aspiration as well as aspiration pneumonia. All medications will be given through her PEG tube. She will continue with supplemental O2, breathing treatments, aggressive pulmonary toilet as well as started on appropriate antibiotics for aspiration pneumonia. She did undergo a modified barium swallow that did show aspiration with minimal cough reflex. We did get the recommendations from a metal cnc operator about oral feedings. Patient should be n.p.o. and they also were consulted to continue her feedings through her PEG tube. Clinically, the patient has improved. She is not having any more shortness of breath. Dr. Escalera talked in detail with the patient and told her that she is not allowed to eat or drink anything by mouth because she has such high risk for aspiration and to follow up with Dr. Mckinnon her ENT surgeon at [facility] and continue on her PEG tube feedings. The patient is appropriate for discharge home today. VITAL SIGNS: Temperature is 97.6 degrees, heart rate 69, respirations 18, blood pressure 138/60, O2 is 97% on room air. DISCHARGE DIET: NPO, she will continue with her home tube feedings. DISCHARGE MEDICATIONS: 1. Xanax 1 mg PEG tube t.i.d. 2. Neurontin 300 mg PEG tube q.3 hours. 3. Vicodin 5/300 mg 7.5 mg PEG tube t.i.d. 4. Levaquin 750 mg PEG tube daily. 5. Imodium 4 mg p.o. q.4 to q.6 hours PEG tube p.r.n. 6. Prilosec 40 mg PEG tube daily. 7. Phenergan 125 mg per PEG tube q.6 hours p.r.n. DISPOSITION: The patient is being discharged home with her home health to continue with her home PEG tube feedings. FOLLOWUP: She will follow up with her primary care physician, Dr. Dustin Whitehead for followup. She has [facility]. The patient can return to the ED for any worsening of symptoms. DISCHARGE TIME: Thirty minutes. Dictated by JERO Huber for Flaquito Gupta MD cc: MD Dustin Chavira MD
[2017-01-23] MEDS ORDERED: LEVAQUIN PO SCH (09:00)
== END 2017-01-22 14:34 | disposition home health service (06) ==
LOC: ED 04:09 → 4N 08:25
PROVIDERS: ATTEND Internal Medicine